=== PATIENT | female | born 1965 | race Caucasian/White ===

== ENCOUNTER 2019-07-18 14:34 | Emergency (ER) | payer BC, OTHER ==
--- NOTE | 2019-07-18 14:53 | ERPHSYRPT ---
- History of Present Illness Time Seen by Provider: 07/18/19 14:42 Source: patient Exam Limitations: no limitations Physician History: 54years old female with history of hypertension, hyperlipidemia, diabetes mellitus, anxiety presented to the ER with chief complaint of right parietal area intermittent sharp throbbing moderate intensity headache lasting for a few seconds and improves without any significant aggravating or relieving factors. Denies any blurry vision, numbness tingling or focal weakness. No difficulty speech. Denies any neck pain or stiffness. No fever or chills reported. Denies any URI symptoms. Does not have any history of migraines.denies any associated nausea or vomiting. Timing/Duration: yesterday Quality: sharpness, stabbing Head Pain Location: parietal Severity of Pain-Max: moderate Severity of Pain-Current: moderate Recent Head Trauma: no recent headache/trauma Associated Symptoms: No confusion, No dizziness, No fatigue, No facial pain, No fever/chills, No flushing, No light-headedness, No loss of consciousness, No nausea/vomiting, No nasal congestion, No nasal drainage, No neck pain, No numbness in legs/feet, No rash, No sweating, No scotoma, No seizures, No sinus infection, No sensitive to light, No speech problems, No stiff neck, No trouble walking, No vision changes, No visual disturbance, No weakness Previous symptoms: no prior history - Review of Systems Constitutional: No Symptoms Eyes: No Symptoms Ears, Nose, & Throat: No Symptoms Respiratory: No Symptoms Cardiac: No Symptoms Abdominal/Gastrointestinal: No Symptoms Genitourinary Symptoms: No Symptoms Musculoskeletal: No Symptoms Skin: No Symptoms Neurological: Headache Psychological: No Symptoms Endocrine: No Symptoms Hematologic/Lymphatic: No Symptoms Immunological/Allergic: No Symptoms - Past Medical History Pertinent Past Medical History: Yes - Nursing Vital Signs Nursing Vital Signs: Initial Vital Signs Temperature 97.6 F 07/18/19 14:52 Pulse Rate 78 07/18/19 14:52 Respiratory Rate 18 07/18/19 14:52 Blood Pressure 142/87 07/18/19 14:52 O2 Sat by Pulse Oximetry 96 07/18/19 14:52 Pain Scale Pain Intensity 4 - Physical Exam General Appearance: no apparent distress, alert Eye Exam: PERRL/EOMI, eyes nml inspection, No scleral icterus Ears, Nose, Throat Exam: normal ENT inspection, pharynx normal, moist mucous membranes (a) Neck Exam: normal inspection, non-tender, supple, full range of motion, No meningismus, No Brudzinski, No Kernig's Respiratory Exam: normal breath sounds, lungs clear, No chest tenderness ( pplease), No respiratory distress Cardiovascular Exam: regular rate/rhythm, normal heart sounds Gastrointestinal/Abdominal Exam: soft, normal bowel sounds, No tenderness Back Exam: normal inspection, normal range of motion, No CVA tenderness Extremity Exam: normal inspection, normal range of motion Mental Status Exam: alert, 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 3, 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: normal hearing, normal speech, PERRL Coordination/Gait Exam: normal finger to nose, normal gait, normal cerebellar function, negative Romberg's sign (a) Motor/Sensory Exam: no motor deficit, no sensory deficit, no pronator drift, negative Babinski's sign (tthere is) DTR Exam: knee (R): 2+, knee (L): 2+ ( a) Skin Exam: normal color SpO2 Interpretation: normal O2 Delivery: Room Air Ordered Tests: Active Orders 24 hr Category Date Time Status HEAD WITHOUT CONTRAST [CT] Stat Exams 07/18/19 15:18 Taken CBC W DIFF Stat Lab 07/18/19 15:00 Completed CMP Stat Lab 07/18/19 15:00 Completed Lab/Rad Data: Laboratory Result Diagrams 07/18/19 15:00 07/18/19 15:00 Laboratory Results 07/18/19 07/18/19 Range/Units 15:00 15:00 WBC 7.6 (4.0-10.5) K/mm3 RBC 4.77 (4.1-5.4) M/mm3 Hgb 12.4 (12.0-16.0) gm/dl Hct 39.1 (35-47) % MCV 82.0 (78-100) fl MCH 26.0 (26-32) pg MCHC 31.7 L (32-36) g/dl RDW 20.8 H (11.5-14.0) % Plt Count 290 (150-450) K/mm3 MPV 10.7 H (6-9.5) fl Gran % 51.3 (36.0-66.0) % Eos # (Auto) 0.12 (0-0.5) Absolute Lymphs (auto) 2.91 (1.0-4.6) Absolute Monos (auto) 0.61 (0.0-1.3) Lymphocytes % 38.3 (24.0-44.0) % Monocytes % 8.0 (0.0-12.0) % Eosinophils % 1.6 (0.00-5.0) % Basophils % 0.8 (0.0-0.4) % Absolute Granulocytes 3.89 (1.4-6.9) Basophils # 0.06 (0-0.4) Sodium 142 (137-145) mmol/L Potassium 4.0 (3.5-5.1) mmol/L Chloride 103 (98-107) mmol/L Carbon Dioxide 27 (22-30) mmol/L Anion Gap 15.9 H (5-15) MEQ/L BUN 17 (7-17) mg/dL Creatinine 0.93 (0.52-1.04) mg/dL Estimated GFR > 60.0 ML/MIN Glucose 184 H (74-106) mg/dL Calcium 10.0 (8.4-10.2) mg/dL Total Bilirubin 0.50 (0.2-1.3) mg/dL AST 25 (14-36) U/L ALT 33 (0-35) U/L Alkaline Phosphatase 69 (38-126) U/L Serum Total Protein 8.5 H (6.3-8.2) g/dL Albumin 4.8 (3.5-5.0) g/dL - Progress Progress: improved Air Movement: good Progress Note: she is offered pain medication patient is wanted this point. Nonfocal neuro exam her stay in the ER. No signs of distress. No signs of meningismus. CT head is negative for any acute findings.recommended taking Tylenol/ibuprofen as needed and outpatient primary care and neurology followup.this the signs symptoms or worsening return to ER which she seems understanding. 07/18/19 16:18 Blood Culture(s) Obtained: No Antibiotics given: No Counseled pt/family regarding: diagnosis, need for follow-up, rad results (the) - Departure Departure Disposition: Home Clinical Impression: Headache Qualifiers: Headache type: unspecified Headache chronicity pattern: unspecified pattern Condition: Stable Critical Care Time: No Referrals: DOCTOR,NO FAMILY [Primary Care Provider] - Follow Up with PCP/3 days LIZETH MARRERO [NON-STAFF PHY W/O PRIVILEGES] - Follow Up with PCP/3 days Additional Instructions: take Tylenol/ibuprofen as needed. Followup with primary care and neurology for reevaluation. Return to ER for intractable headache/vomiting/focal numbness tingling weakness.
[2019-07-18 15:05] VITALS: BP 142/87; PULSE 78; O2SAT 96
[2019-07-18 15:19] LABS: Absolute Neutrophil Ct (ANC) 3.89 (1.4-6.9); BASOPHIL % 0.8 % (0.0-0.4); Basophil (Absolute #) 0.06 (0-0.4); Eosinophil % 1.6 % (0.00-5.0); Eosinophil (Absolute #) 0.12 (0-0.5); Hematocrit 39.1 % (35-47); Hemoglobin 12.4 gm/dl (12.0-16.0); Lymphocyte (Absolute #) 2.91 (1.0-4.6); Lymphocytes % 38.3 % (24.0-44.0); Mean Corpuscular Hgb Concent. 31.7 g/dl (32-36); Mean Platelet Volume 10.7 fl (6-9.5); Monocyte (Absolute #) 0.61 (0.0-1.3); Neutrophil % 51.3 % (36.0-66.0); Platelet Count 290 K/mm3 (150-450); Red Blood Count 4.77 M/mm3 (4.1-5.4); Red Cell Distribution Width 20.8 % (11.5-14.0); White Blood Count 7.6 K/mm3 (4.0-10.5)
[2019-07-18 15:27] LABS: ALBUMIN 4.8 g/dL (3.5-5.0); ALKALINE PHOSPHATASE 69 U/L (38-126); ANION GAP 15.9 MEQ/L (5-15); BLOOD UREA NITROGEN 17 mg/dL (7-17); CHLORIDE 103 mmol/L (98-107); Carbon Dioxide 27 mmol/L (22-30); Creatinine 1 0.93 mg/dL (0.52-1.04); Glucose 184 mg/dL (74-106); SGOT/AST 25 U/L (14-36); SGPT/ALT 33 U/L (0-35); SODIUM 142 mmol/L (137-145); Total Protein 8.5 g/dL (6.3-8.2)
--- NOTE | 2019-07-18 16:18 | XRAY ---
Indication: Headache. Multiple contiguous axial images obtained through the head without contrast. Comparison: None Normal appearing brain parenchyma, ventricles, and bony calvarium. Visualized paranasal sinuses and mastoid air cells are clear. Impression: Normal CT head without contrast exam. CTDI 56.91
== END 2019-07-18 16:40 | disposition home or self-care (01) ==
LOC: ED 14:34
DX: R51 Headache (principal); I10 Essential (primary) hypertension; E78.5 Hyperlipidemia, unspecified; E11.9 Type 2 diabetes mellitus without complications
CPT/HCPCS: 36415; 70450; 80053; 85025; 99284

== ENCOUNTER 2024-04-06 07:53 | Emergency (ER) | payer OTHER ==
--- NOTE | 2024-04-06 08:01 | ERPHSYRPT ---
- History of Present Illness Time Seen by Provider: 04/06/24 08:01 Source: patient Exam Limitations: no limitations Physician History: This is an overweight 59-year-old white female patient of Dr. Sanchez who presents with lumbar level back pain and right flank pain that has been worsening over the last 2 to 3 days. She denies acute injury. She has had a history of back spasms in the past. She has tried heat, TENS unit, lidocaine patch and repositioning without benefit. Today the pain was much worse and she had associated nausea and sweating. She has no abdominal pain. She denies chest pain. She denies shortness of breath. Patient has no known history of ureterolithiasis. Patient has a history of diabetes, RLS, hypertension and hyperlipidemia. Timing/Duration: day(s), worse Method of Injury: other (No injury) Quality: sharp (Spasms) Back Pain Location: lumbar spine, paraspinous muscles (Right side) Severity of Pain-Max: moderate Severity of Pain-Current: moderate Modifying Factors: Improves With: nothing Associated Symptoms: sweating, nausea, lower back pain (Right lumbar level paraspinous muscle region), muscle spasms (Lumbar level paraspinous muscle region), No loss of bowel control, No vomiting, No problems urinating Previous symptoms: same symptoms as today, no recent treatment Allergies/Adverse Reactions: tetanus immune globulin Allergy (Verified 04/06/24 08:09) Tetanus Vaccines and Toxoid Allergy (Verified 04/06/24 08:09) Home Medications: Buspirone HCl 30 mg PO DAILY 04/06/24 [History] Cholecalciferol (Vitamin D3) [Vitamin D3] 1,000 unit PO DAILY 04/06/24 [History] Empagliflozin [Jardiance] 25 mg PO DAILY 04/06/24 [History] Esomeprazole Magnesium 20 mg PO DAILY 04/06/24 [History] Metformin HCl 500 mg [Glucophage 500 MG] 1,000 mg PO BID 04/06/24 [History] Ropinirole HCl 0.5 mg [Requip 0.5 MG] 0.25 mg PO DAILY 04/06/24 [History] Valsartan [Diovan] 160 mg PO DAILY 04/06/24 [History] terbinafine HCL [Terbinafine HCl] 250 mg PO DAILY 04/06/24 [History] Hx Tetanus, Diphtheria Vaccination/Date Given: Yes Hx Influenza Vaccination/Date Given: Yes Hx Pneumococcal Vaccination/Date Given: No Travel Risk - International Travel Have you traveled outside of the country in past 3 weeks: No - Emerging Infectious Disease Are you exhibiting symptoms associated with any current EIDs: No - Review of Systems Constitutional: No Symptoms Eyes: No Symptoms Ears, Nose, & Throat: No Symptoms Respiratory: No Symptoms Cardiac: No Symptoms Abdominal/Gastrointestinal: Nausea, No Abdominal Pain, No Vomiting, No Appetite Changes Genitourinary Symptoms: No Symptoms Musculoskeletal: Back Pain (Right side) Skin: No Symptoms Neurological: No Symptoms Psychological: No Symptoms Endocrine: No Symptoms Hematologic/Lymphatic: No Symptoms Immunological/Allergic: No Symptoms - Past Medical History Pertinent Past Medical History: Yes Cardiac History: High Cholesterol, Hypertension Endocrine Medical History: Diabetes Type II Other Medical History: low iron - Past Surgical History Past Surgical History: Yes Female Surgical History: Hysterectomy, Tubal Ligation - Social History Smoking Status: Never smoker Exposure to second hand smoke: No Drug Use: none Patient Lives Alone: No - Nursing Vital Signs Nursing Vital Signs: Initial Vital Signs Temperature 96.2 F 04/06/24 07:56 Pulse Rate 77 04/06/24 07:56 Respiratory Rate 18 04/06/24 07:56 Blood Pressure 146/84 04/06/24 07:56 O2 Sat by Pulse Oximetry 99 04/06/24 07:56 Pain Scale Pain Intensity [Right Back] 7 Pain Intensity 0 - Physical Exam General Appearance: mild distress (Moderate), alert, anxiety Eye Exam: PERRL/EOMI, eyes nml inspection Ears, Nose, Throat Exam: normal ENT inspection, moist mucous membranes Neck Exam: normal inspection, non-tender, supple, full range of motion Respiratory Exam: normal breath sounds, lungs clear, airway intact, No chest tenderness, No respiratory distress Gastrointestinal Exam: soft, normal bowel sounds, No tenderness, No guarding, No rebound Pelvic Exam: not done Rectal Exam: not done Back Exam: normal range of motion, CVA tenderness, vertebral tenderness (Right side), muscle spasm (Right side lumbar level) Extremity Exam: normal inspection, normal range of motion, pelvis stable, robles Neurologic Exam: alert, oriented x 3, 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, 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, nml cerebellar function, nml station & gait, sensation nml Skin Exam: normal color, warm, dry Lymphatic Exam: No adenopathy SpO2 Interpretation: normal - Course Nursing assessment & vital signs reviewed: Yes Ordered Tests: Active Orders 24 hr Category Date Time Status IV Insertion STAT Care 04/06/24 07:57 Active ABDOMEN AND PELVIS W/0 CONTRAS [CT] Stat Exams 04/06/24 07:57 Completed RECONSTRUCTION [CT] Stat Exams 04/06/24 08:13 Completed CBC W DIFF Stat Lab 04/06/24 08:25 Completed CMP Stat Lab 04/06/24 08:25 Completed UA W/RFX UR CULTURE Stat Lab 04/06/24 08:42 Completed Medication Summary Discontinued Medications Generic Name Dose Route Start Last Admin Trade Name Freq PRN Reason Stop Dose Admin Methylprednisolone Sodium 0 mg 04/06/24 07:59 04/06/24 08:29 Succinate 125 mg/ Sterile IV 04/06/24 08:00 Not Given Water 2 ml STAT ONE Hydromorphone HCl 1 mg 04/06/24 07:57 04/06/24 08:28 Hydromorphone 1 Mg/1ml Inj IV 04/06/24 07:58 Not Given STAT ONE Sodium Chloride 1,000 mls @ 999 mls/hr 04/06/24 08:36 04/06/24 09:44 Sodium Chloride 0.9% 1000 Ml IV 04/06/24 09:36 Infused .Q1H1M STA Infusion Sodium Chloride Confirm 04/06/24 08:38 Sodium Chloride 0.9% 1000 Ml Administered 04/06/24 08:39 Dose 1,000 mls @ ud .ROUTE .STK-MED ONE Ketorolac Tromethamine 30 mg 04/06/24 08:14 04/06/24 08:21 Ketorolac Tromethamine 30 Mg/Ml Inj IV 04/06/24 08:15 30 mg STAT ONE Administration Ketorolac Tromethamine Confirm 04/06/24 08:16 Ketorolac Tromethamine 30 Mg/Ml Inj Administered 04/06/24 08:17 Dose 30 mg .ROUTE .STK-MED ONE Methylprednisolone Sodium Succinate Confirm 04/06/24 08:13 Methylprednis Sod Succ 125 Mg/2 Ml Vial Administered 04/06/24 08:14 Dose 125 mg .ROUTE .STK-MED ONE Ondansetron HCl 4 mg 04/06/24 07:57 04/06/24 08:21 Ondansetron Hcl 4 Mg/2 Ml Vial IV 04/06/24 07:58 4 mg STAT ONE Administration Ondansetron HCl Confirm 04/06/24 08:12 Ondansetron Hcl 4 Mg/2 Ml Vial Administered 04/06/24 08:13 Dose 4 mg .ROUTE .STK-MED ONE Orphenadrine Citrate 60 mg 04/06/24 08:00 04/06/24 08:22 Orphenadrine Citrate 60 Mg/2 Ml Vial IV 04/06/24 08:01 60 mg STAT ONE Administration Orphenadrine Citrate Confirm 04/06/24 08:13 Orphenadrine Citrate 60 Mg/2 Ml Vial Administered 04/06/24 08:14 Dose 60 mg .ROUTE .STK-MED ONE Sterile Water Confirm 04/06/24 08:12 Water For Injection,Sterile 10 Ml Vial Administered 04/06/24 08:13 Dose 10 ml IJ .STK-MED ONE Lab/Rad Data: Laboratory Result Diagrams 04/06/24 08:25 04/06/24 08:25 Laboratory Results 04/06/24 04/06/24 04/06/24 Range/Units 08:42 08:25 08:25 WBC 5.9 (3.98-10.04) x10^3/uL RBC 4.66 (3.93-5.22) x10^6/uL Hgb 12.1 (11.2-15.7) g/dL Hct 38.9 (34.1-44.9) % MCV 83.5 (79.4-94.8) fL MCH 26.0 (25.6-32.2) pg MCHC 31.1 L (32.2-35.5) g/dL RDW 14.5 H (11.7-14.4) % Plt Count 275 (182-369) x10^3/uL MPV 10.0 (9.4-12.3) fL Gran % 58.7 (34.0-71.1) % Immature Gran % (Auto) 0.5 H (0.001-0.429) % Nucleat RBC Rel Count 0.0 (0.00-0.2) % Eos # (Auto) 0.20 (0.04-0.36) x10^3/uL Immature Gran # (Auto) 0.03 (0.001-0.031) x10^3u/L Absolute Lymphs (auto) 1.70 (1.18-3.74) x10^3/uL Absolute Monos (auto) 0.44 (0.24-0.86) x10^3/uL Absolute Nucleated RBC 0.00 (0.00-0.012) x10^3u/L Lymphocytes % 28.8 (19.3-51.7) % Monocytes % 7.4 (4.7-12.5) % Eosinophils % 3.4 (0.7-5.8) % Basophils % 1.2 (0.1-1.2) % Absolute Granulocytes 3.47 (1.56-6.13) x10^3/uL Basophils # 0.07 (0.01-0.08) x10^3/uL Sodium 140 (135-145) mmol/L Potassium 3.9 (3.5-5.1) mmol/L Chloride 103 (98-107) mmol/L Carbon Dioxide 26 (22-30) mmol/L Anion Gap 15.2 H (5-15) MEQ/L BUN 12 (7-17) mg/dL Creatinine 0.98 (0.52-1.04) mg/dL Estimated GFR 66.9 ML/MIN Glucose 153 H (74-106) mg/dL Calcium 9.6 (8.4-10.2) mg/dL Total Bilirubin 0.40 (0.2-1.3) mg/dL AST 30 (14-36) U/L ALT 42 H (0-35) U/L Alkaline Phosphatase 68 (38-126) U/L Serum Total Protein 7.6 (6.3-8.2) g/dL Albumin 4.6 (3.5-5.0) g/dL Urine Color Yellow (Yellow) Urine Appearance Clear (Clear) Urine pH 5.0 (4.6-8.0) Ur Specific Robards >=1.030 A (1.005-1.030) Urine Protein Negative (Negative) Urine Glucose (UA) >=1000 A (Negative) mg/dL Urine Ketones Negative (Negative) Urine Blood Negative (Negative) Urine Nitrite Negative (Negative) Urine Bilirubin Negative (Negative) Urine Urobilinogen 0.2 (0.2) mg/dL Ur Leukocyte Esterase Negative (Negative) U Hyaline Cast (Auto) NONE SEEN (0-2) /LPF Urine Microscopic RBC 0-2 (0-5) /HPF Urine Microscopic WBC 0-2 (0-5) /HPF Ur Epithelial Cells None Seen (None Seen) /HPF Urine Bacteria None Seen (None Seen) /HPF Urine Culture Reflexed NO (NO) - Progress Progress: improved, pain not gone completely, re-examined Progress Note: 04/06/24 08:58 Medical decision making and the assignment of other complexity to this patient's medical issue today is based on review of the patient's past medical history, review of the patient's medication list, review of patient drug allergy list, history present illness and physical findings on examination. The workup in this patient includes placement of a intravenous line, infusion of crystalloid solution, urinalysis, CBC, CMP, amylase, lipase, infusion of 30 mg intravenous Toradol, infusion of 60 mg intravenous orphenadrine, CT scan of the abdomen pelvis without contrast. Patient does not want narcotics. Differential diagnosis includes but is not limited to ureterolithiasis, pyelonephritis, pancreatitis, acute exacerbation of chronic back pain 04/06/24 09:23 Interpreted the patient's laboratory data results. Based on the patient's laboratory data results, there are no acute, emergent medical issues at this time. Reexamination of the patient shows that her symptoms have significantly improved. She is much more comfortable after the injections of Toradol and orphenadrine.. 04/06/24 09:[address] scan of the abdomen pelvis without contrast was interpreted by the radiologist and I reviewed the impression. The patient states negative renal calculus or evidence of obstructive uropathy. There is no free air and there is no free fluid. There are scattered aortic calcifications without abdominal aortic aneurysm. 04/06/24 10:[address] scan lumbar spine reconstruction was interpreted by the radiologist and I reviewed the impression. The impression states multilevel anterior endplate spurring. Otherwise normal study Counseled pt/family regarding: lab results, diagnosis, need for follow-up, rad results Medical Desision Making - Diagnostic Testing Diagnostic test were ordered, analyzed, and reviewed by me: Yes Radiological Interpretation: Reviewed by me, Teleradiologist Report - Risk of complications The pt has a mod risk of morbidity or mortality based on: Need for prescription drug management - Departure Departure Disposition: Home Clinical Impression: Back pain Condition: Stable Critical Care Time: No Referrals: BILLY SANCHEZ DO [Primary Care Provider] - Follow up/PCP as directed Additional Instructions: Take your medication as prescribed. Call your primary care provider today, 04/06/2024, to make arrangements for follow-up appointment to be seen within the next 5 to 7 days. Prescriptions: Orphenadrine Citrate 100 mg [Norflex 100 MG Tablet] 100 mg PO BID #10 tab Ketorolac Trometh 10 mg Tab [TORAdol 10 MG TABLET] 10 mg PO QID #16 tablet
[2024-04-06 08:08] VITALS: TEMP 96.2
[2024-04-06] MEDS ORDERED: Zofran 4 MG/2 ML VIAL ONE (08:12)
[2024-04-06] MEDS ORDERED: Sterile H2O 10 ml IJ ONE (08:12)
[2024-04-06] MEDS ORDERED: Norflex 60 MG/2 ML ONE (08:13)
[2024-04-06] MEDS ORDERED: solu-MEDROL ONE (08:13)
[2024-04-06] MEDS ORDERED: TORAdol 30 mg Injection ONE (08:16)
[2024-04-06] MEDS: TORAdol 30 mg Injection IV ONE (08:21)
[2024-04-06] MEDS: Zofran 4 MG/2 ML VIAL IV ONE (08:21)
[2024-04-06] MEDS: Norflex 60 MG/2 ML IV ONE (08:22)
[2024-04-06] MEDS: Hydromorphone 1 mg/ml Injection IV ONE (08:28)
[2024-04-06] MEDS: solu-MEDROL 125 MG, Sterile H2O 10 ml 2 ML IV ONE (08:29)
[2024-04-06 08:31] LABS: Absolute Neutrophil Ct (ANC) 3.47 x10^3/uL (1.56-6.13); BASOPHIL % 1.2 % (0.1-1.2); Basophil (Absolute #) 0.07 x10^3/uL (0.01-0.08); Eosinophil % 3.4 % (0.7-5.8); Hematocrit 38.9 % (34.1-44.9); Hemoglobin 12.1 g/dL (11.2-15.7); IMMATURE GRAN # 0.03 x10^3u/L (0.001-0.031); IMMATURE GRAN % 0.5 % (0.001-0.429); Lymphocytes % 28.8 % (19.3-51.7); Mean Cell Volume 83.5 fL (79.4-94.8); Mean Corpuscular Hgb Concent. 31.1 g/dL (32.2-35.5); Monocyte (Absolute #) 0.44 x10^3/uL (0.24-0.86); Monocytes % 7.4 % (4.7-12.5); Neutrophil % 58.7 % (34.0-71.1); Platelet Count 275 x10^3/uL (182-369); Red Blood Count 4.66 x10^6/uL (3.93-5.22); Red Cell Distribution Width 14.5 % (11.7-14.4); White Blood Count 5.9 x10^3/uL (3.98-10.04)
[2024-04-06] MEDS ORDERED: Sodium Chloride 0.9% 1000 ML 1,000 ML ONE (08:38)
[2024-04-06] MEDS: Sodium Chloride 0.9% 1000 ML 1,000 ML IV STA (08:41)
[2024-04-06 08:44] LABS: ALBUMIN 4.6 g/dL (3.5-5.0); ANION GAP 15.2 MEQ/L (5-15); BILIRUBIN,TOTAL 0.4 mg/dL (0.2-1.3); Calcium 9.6 mg/dL (8.4-10.2); Creatinine 1 0.98 mg/dL (0.52-1.04); EST GLOMERULAR FILTRATION RATE 66.9 ML/MIN; Potassium 3.9 mmol/L (3.5-5.1); Total Protein 7.6 g/dL (6.3-8.2)
[2024-04-06 08:55] LABS: Appearance Clear (Clear); Bacteria None Seen /HPF (None Seen); Bilirubin Negative (Negative); Blood Negative (Negative); Epithelial Cells None Seen /HPF (None Seen); Glucose, Urine >=1000 mg/dL (Negative); Hyaline Casts NONE SEEN /LPF (0-2); Ketones Negative (Negative); Leukocyte Esterase Negative (Negative); Nitrite Negative (Negative); Protein,Urine Dip Negative (Negative); RBC 0-2 /HPF (0-5); Specific Gravity >=1.030 (1.005-1.030); Urobilinogen 0.2 mg/dL (0.2); WBC 0-2 /HPF (0-5)
[2024-04-06 08:56] LABS: ADD URINE CULTURE? NO (NO)
[2024-04-06 08:58] VITALS: O2SAT 98
--- NOTE | 2024-04-06 09:32 | XRAY ---
Indication: Right flank pain. Multiple contiguous axial images obtained through the abdomen and pelvis without contrast using renal stone protocol. Comparison: None Lung bases clear. Heart not enlarged. No renal calculus or evidence for obstructive uropathy in either system. Noncontrasted stomach and bowel loops appear nonobstructed. Appendectomy and hysterectomy reported. Diffuse fatty liver. No free fluid/air. Remaining liver, gallbladder, pancreas, spleen, adrenal glands, kidneys, ureters, and bladder are unremarkable for noncontrast exam. Minimal scattered aortic calcifications without AAA. Osseous structures intact with mild degenerative changes throughout spine and both hips. No ventral or inguinal hernias. Impression: 1. Negative renal calculus or evidence for obstructive uropathy. 2. Chronic findings including fatty liver, arteriosclerotic disease, and chronic bony findings. 3. Remaining CT abdomen/pelvis without contrast exam is negative.
--- NOTE | 2024-04-06 09:58 | XRAY ---
Indication: Lumbar pain. Sagittal, coronal, and axial reformatted images lumbar spine obtained using raw data from same day CT abdomen/pelvis exam. Minimal multilevel anterior endplate spurring. Otherwise normal bones, articulation, and soft tissues. CT abdomen/pelvis reported separately.
[2024-04-06 10:40] VITALS: BP 154/78; PULSE 75; RESP 18
== END 2024-04-06 10:45 | disposition home or self-care (01) ==
LOC: ED 07:53
DX: M54.50 Low back pain, unspecified (principal); R10.9 Unspecified abdominal pain; R11.0 Nausea; E11.9 Type 2 diabetes mellitus without complications; I10 Essential (primary) hypertension; E78.5 Hyperlipidemia, unspecified; Z79.84 Long term (current) use of oral hypoglycemic drugs; Z79.899 Other long term (current) drug therapy
CPT/HCPCS: 36000; 36415; 74176; 76376; 80053; 81001; 85025; 96374; 96375; 99284; J1885; J2360; J2405; J2919